=== PATIENT | female | born 1990 | race Hispanic/Latino ===

== ENCOUNTER 2018-08-22 21:57 | Emergency (ER) | payer SELFPAY ==
[2018-08-22 22:59] LABS: Urine Appearance TURBID; Urine Bilirubin NEGATIVE (NEG); Urine Blood 3+ (NEG); Urine Color RED; Urine Glucose NEGATIVE (NEG); Urine Protein 2+ (NEG); Urine pH 5.5 (5.0-7.0)
[2018-08-22 23:01] LABS: Urine Microscopic Reflex ORDER UMIC
[2018-08-22 23:09] LABS: Absolute Lymphocytes (CBC) 1.4 K/uL (0.7-4.9); Basophils % 0.5 % (0-1.3); Eosinophils % 0.8 % (0-4.4); Hematocrit 32.8 % (36.0-45.0); Lymphocytes % 9.6 % (15.3-44.8); MPV 9.8 fL (7.6-11.3); Monocytes % 6.9 % (3.3-12.3); RBC Red Blood Cell Count 4.15 M/uL (3.86-4.86)
[2018-08-22 23:18] LABS: Urine Culture Reflex Order REFLEXED; Urine RBC TNTC /HPF (NONE SEEN)
[2018-08-22 23:19] LABS: Urine Bacteria <20 /HPF (<20)
[2018-08-22 23:35] LABS: BUN Blood Urea Nitrogen 9 mg/dL (7-18); Bicarbonate 24 mmol/L (21-32); Glucose Level 87 mg/dL (74-106); HCG, Quantitative 59542 mIU/mL (1-3); Potassium 3.4 mmol/L (3.5-5.1); Sodium Level 138 mmol/L (136-145)
--- NOTE | 2018-08-23 00:45 | EDPHYS ---
Physician Documentation [facility] Name: Haley Yadav Age: 28 yrs Sex: Female : 1990 Arrival Date: 08/22/2018 Time: 22:04 Bed 16 Private MD: ED Physician Yovani Dyer HPI: 08/22 22:41 This 28 yrs old Female presents to ER via Ambulatory with complaints of jmm Vaginal Bleeding, + Preg <12wks. 22:41 The patient presents to the emergency department with vaginal bleeding, that is jmm moderate. The estimated gestational age is 6 weeks. course: care: none. Previous pregnancies: in previous pregnancies patient has had. Patient complaints of pelvic pain and vaginal bleeding beginning earlier today. Patient recently treated for pyelonephritis 2 days prior. . 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 - Social history:: Smoking status: Patient/guardian denies using tobacco. - Ebola Screening: : No symptoms or risks identified at this time. ROS: 22:41 Constitutional: Negative for fever, chills, and weight loss, Cardiovascular: Negative jmm for chest pain, palpitations, and edema, Respiratory: Negative for shortness of breath, cough, wheezing, and pleuritic chest pain, Abdomen/GI: Negative for abdominal pain, nausea, vomiting, diarrhea, and constipation. 22:41 : Positive for pelvic pain, vaginal bleeding. 22:41 All other systems are negative. Exam: 22:41 Constitutional: This is a well developed, well nourished patient who is awake, alert, jmm and in no acute distress. Head/Face: atraumatic. Eyes: EOMI, no conjunctival erythema appreciated ENT: Moist Mucus Membranes Neck: Trachea midline, Supple Chest/axilla: Normal chest wall appearance and motion. Cardiovascular: Regular rate and rhythm. No edema appreciated Respiratory: Normal respirations, no respiratory distress appreciated Abdomen/GI: Non distended, soft Back: Normal ROM Skin: General appearance color normal MS/ Extremity: Moves all extremities, no obvious deformities appreciated, no edema noted to the lower extremities Neuro: Awake and alert, normal gait Psych: Behavior is normal, Mood is normal, Patient is cooperative and pleasant Vital Signs: 22:08 BP 127 / 83; Pulse 106; Resp 18; Temp 99(O); Pulse Ox 100% on R/A; Weight 83.46 kg; lp1 Height 5 ft. 5 in. (165.10 cm); Pain 2/10; 08/23 00:04 BP 104 / 70; Pulse 90; Resp 18; Pulse Ox 99% on R/A; tl2 00:54 BP 103 / 75; Pulse 86; Resp 18; Temp 98.7(TE); Pulse Ox 100% on R/A; Pain 0/10; ak1 08/22 22:08 Body Mass Index 30.62 (83.46 kg, 165.10 cm) lp1 MDM: 08/22 22:41 Patient medically screened. [facility] 08/23 00:42 Data reviewed: vital signs, nurses notes. Counseling: I had a detailed discussion with [facility] the patient and/or guardian regarding: the historical points, exam findings, and any diagnostic results supporting the discharge/admit diagnosis, lab results, radiology results, the need for outpatient follow up, to return to the emergency department if symptoms worsen or persist or if there are any questions or concerns that arise at home. ED course: Patient is advised to continue oral antibiotics. US confirms IUP. Patient is advised to repeat hcg levels in 2 days and otherwise given strict return precautions. Patient understood and agrees with the plan of care. . 08/22 22:43 Order name: Quantitative Hcg; Complete Time: 23:51 [facility] 08/22 22:43 Order name: Abo/rh Typing; Complete Time: 00:31 [facility] 08/22 22:43 Order name: Basic Metabolic Panel; Complete Time: 23:51 [facility] 08/22 22:43 Order name: CBC with Diff; Complete Time: 23:27 [facility] 08/22 22:49 Order name: Urinalysis; Complete Time: 23:27 [facility] 08/22 22:54 Order name: Test, Urine; Complete Time: 23:27 [facility] 08/22 22:43 Order name: IV Saline Lock; Complete Time: 22:51 [facility] 08/22 22:43 Order name: Labs collected and sent; Complete Time: 22:51 [facility] 08/22 22:43 Order name: NPO; Complete Time: 22:51 [facility] 08/22 22:43 Order name: Urine Dipstick-Ancillary (obtain specimen); Complete Time: 22:51 [facility] 08/22 22:49 Order name: Transvaginal OB [facility] 08/22 23:03 Order name: Urine Microscopic Only; Complete Time: 23:27 [facility] 08/22 23:22 Order name: Urine Culture [facility] Administered Medications: No medications were administered Disposition: 02:45 Co-signature as Attending Physician, Yovani Dyer MD. Disposition: 08/23/18 00:43 Discharged to Home. Impression: Threatened , Urinary tract infection, site not specified. - Condition is Stable. - Discharge Instructions: Threatened Miscarriage, Urinary Tract Infection, Adult. - Medication Reconciliation Form, Thank You Letter, Antibiotic Education, Prescription Opioid Use form. - Follow up: Private Physician; When: 2 - 3 days; Reason: Recheck today's complaints, Continuance of care, Repeat Beta-HCG (48 Hours), Re-evaluation by your physician. Signatures: Dispatcher [employer] [facility] Farhat Marcelo PA PA [facility] Taylor Boyd, RN RN lp1 Diamond Maire RN RN ak1 Yovani Dyer MD MD Corrections: (The following items were deleted from the chart) 08/22 22:49 22:44 1st Trimest Single 1st Fetus+US.RAD.BRZ ordered. [facility] 08/23 01:18 00:43 08/23/2018 00:43 Discharged to Home. Impression: Threatened ; Urinary ak1 tract infection, site not specified. Condition is Stable. Forms are Medication Reconciliation Form, Thank You Letter, Antibiotic Education, Prescription Opioid Use. Follow up: Private Physician; When: 2 - 3 days; Reason: Recheck today's complaints, Continuance of care, Repeat Beta-HCG (48 Hours), Re-evaluation by your physician. [facility]
--- NOTE | 2018-08-23 00:45 | ER ---
Nurse's Notes [facility] Name: Haley Yadav Age: 28 yrs Sex: Female : 1990 Arrival Date: 08/22/2018 Time: 22:04 Bed 16 Private MD: Diagnosis: Threatened ;Urinary tract infection, site not specified Presentation: 08/22 22:05 Presenting complaint: Patient states: "Found out this weekend I was . 2 days lp1 ago I started having fever, chills, diagnosed with UTI, kidney infection at [place] yesterday"; States "Today I felt a gush of blood and I have been having cramping. I passed one big clot". Transition of care: patient was not received from another setting of care. Onset of symptoms was August 22, 2018. Risk Assessment: Do you want to hurt yourself or someone else? Patient reports no desire to harm self or others. Initial Sepsis Screen:. Care prior to arrival: None. 22:05 Method Of Arrival: Ambulatory lp1 22:05 Acuity: ISAAC 3 lp1 22:10 Initial Sepsis Screen: Does the patient meet any 2 criteria? No. Patient's initial lp1 sepsis screen is negative. Does the patient have a suspected source of infection? No. Patient's initial sepsis screen is negative. Triage Assessment: 22:11 General: Appears in no apparent distress. Behavior is appropriate for age. Pain: lp1 Complains of pain in suprapubic area Pain currently is 3 out of 10 on a pain scale. Quality of pain is described as crampy. : Reports vaginal bleeding that is bright red. 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 Historical: - Allergies: 22:08 No Known Allergies; lp1 - Home Meds: 22:08 None [Active]; lp1 - PMHx: 22:08 None; lp1 - PSHx: 22:08 D \\T\\ C; lp1 - Immunization history:: Adult Immunizations up to date. - Social history:: Smoking status: Patient/guardian denies using tobacco. - Ebola Screening: : No symptoms or risks identified at this time. Screenin:08 Abuse screen: Denies threats or abuse. Denies injuries from another. Nutritional lp1 screening: No deficits noted. Tuberculosis screening: No symptoms or risk factors identified. Fall Risk None identified. Assessment: 22:52 General: Appears in no apparent distress. comfortable, Behavior is calm, cooperative, tl2 appropriate for age. Pain: Complains of pain in pelvis and suprapubic area. Neuro: Level of Consciousness is awake, alert, obeys commands, Oriented to person, place, time, situation. Cardiovascular: Denies chest pain. Respiratory: Airway is patent Respiratory effort is even, unlabored, Respiratory pattern is regular, symmetrical. GI: No signs and/or symptoms were reported involving the gastrointestinal system. : Reports cramping, in bilateral lower quadrant(s) vaginal bleeding that is with clots, heavy flow. Derm: Skin is pink, warm \\T\\ dry. 08/23 00:04 Reassessment: Patient appears in no apparent distress at this time. Patient and/or tl2 family updated on plan of care and expected duration. Pain level reassessed. Patient is alert, oriented x 3, equal unlabored respirations, skin warm/dry/pink. pt states she was bleeding during US, provided pad to pt. Vital Signs: 08/22 22:08 BP 127 / 83; Pulse 106; Resp 18; Temp 99(O); Pulse Ox 100% on R/A; Weight 83.46 kg; lp1 Height 5 ft. 5 in. (165.10 cm); Pain 2/10; 08/23 00:04 BP 104 / 70; Pulse 90; Resp 18; Pulse Ox 99% on R/A; tl2 00:54 BP 103 / 75; Pulse 86; Resp 18; Temp 98.7(TE); Pulse Ox 100% on R/A; Pain 0/10; ak1 08/22 22:08 Body Mass Index 30.62 (83.46 kg, 165.10 cm) lp1 ED Course: 08/22 22:04 Patient arrived in ED. es 22:07 Triage completed. lp1 22:07 Arm band placed on right wrist. lp1 22:34 Farhat Marcelo PA is PHCP. [facility] 22:34 Yovani Dyer MD is Attending Physician. [facility] 22:44 Cordova, Theresa, RN is Primary Nurse. tl2 22:49 Transvaginal OB In Process Unspecified. EDMS 22:52 Patient has correct armband on for positive identification. Placed in gown. Bed in low tl2 position. Call light in reach. Side rails up X 1. 22:52 Inserted saline lock: 20 gauge in left antecubital area, using aseptic technique. Blood tl2 collected. 22:52 Initial lab(s) drawn, by me, sent to lab. Urine collected: clean catch specimen. tl2 08/23 01:07 No provider procedures requiring assistance completed. IV discontinued, intact, ak1 bleeding controlled, No redness/swelling at site. Pressure dressing applied. Administered Medications: No medications were administered Outcome: 00:43 Discharge ordered by . vini 01:07 Discharged to home ambulatory. ak1 01:07 Condition: good 01:07 Discharge instructions given to patient, Instructed on discharge instructions, follow up and referral plans. repeat lab work in 48 hours Demonstrated understanding of instructions, follow-up care. 01:18 Patient left the ED. ak1 Signatures: Dispatcher [employer] [facility] Farhat Marcelo PA PA jmm Salyer, Edna es Pena, Laura, RN RN lp1 Diamond Marie RN RN ak1 Theresa Cordova, RN RN tl2 Corrections: (The following items were deleted from the chart) 08/22 22:07 22:07 LMP 06/23/2018 natalie estrada
--- NOTE | 2018-08-23 08:10 | RAD REPORT ---
EXAM DESCRIPTION: US - Transvaginal OB - 08/22/2018 11:04 pm CLINICAL HISTORY: VAGINAL BLEEDING COMPARISON: No comparisons FINDINGS: A single gestational sac is seen within the uterus. The shape of the sac is within normal limits for gestational age. Within the sac is a single pole with crown-rump length of 8 mm, cor relating to estimated gestational age of 6 weeks 5 days. Estimated date of delivery is 04/09/2019. Heart rate is 121 BPM. The placenta is not yet developed due to early gestational age. The maternal adnexa and ovaries are within normal limits. Normal Doppler blood flow was demonstrated to both ovaries. IMPRESSION: Single live early intrauterine gestation with estimated gestational age of 6 weeks 5 day s, ROMAN 04/09/2019. No unusual or unexpected finding.
== END 2018-08-23 01:18 | disposition home or self-care (01) ==
LOC: ER 21:57
DX: O20.0 Threatened abortion (principal); O23.41 Unspecified infection of urinary tract in pregnancy, first trimester; Z3A.08 8 weeks gestation of pregnancy
CPT/HCPCS: 36415; 76817; 80048; 81003; 81015; 81025; 84702; 85025; 86900; 86901; 87086; 87088; 99283